=== PATIENT | male | born 1995 | race Caucasian/White ===

== ENCOUNTER 2019-03-13 14:47 | Emergency (ER) | payer OTHER ==
[~2019-03-13] VITALS: Ht 175.3 cm; Wt 72.6 kg
[2019-03-13] MEDS ORDERED: HYDR1TAB94 PO (16:33)
[2019-03-18] MEDS ORDERED: TRAM50 PO (16:58)
== END 2019-03-13 16:54 | disposition home or self-care (01) ==
LOC: ER 14:47
DX: S62.211A Bennett's fracture, right hand, initial encounter for closed fracture (principal); W23.0XXA Caught, crushed, jammed, or pinched between moving objects, initial encounter; Z88.8 Allergy status to other drugs, medicaments and biological substances
CPT/HCPCS: 29125; 73090; 73130; 96372-59; 99283-25; J1885

== ENCOUNTER 2019-03-21 13:48 | Day surgery (SDC) | payer OTHER ==
[~2019-03-21] VITALS: Ht 177.8 cm; Wt 73.8 kg
[~2019-03-21 13:48] MED LIST: HYDR1TAB94 PO; TRAM50 PO
--- NOTE | 2019-03-21 14:34 | NUR ---
PT ADMITTED TO [facility]. REPORT GIVEN TO PUNEET UMANA RN.
--- NOTE | 2019-03-21 14:54 | NUR ---
Ambulatory in Day Surgery History, Chart, Medications and Allergies reviewed before start of procedure.Lungs clear T/O to Auscultation. Patient confirms NPO status and agrees with scheduled surgery. PT BELONGINGS PLACED UNDER BED.
--- NOTE | 2019-03-21 16:58 | NUR ---
RECIEVED PATIENT FROM PACU RECIEVED REPORT PATIENT STARTED ON LIQUIDS AND CRACKERS. FAMILY MEMBER BROUGHT TO BEDSIDE
--- NOTE | 2019-03-21 17:34 | NUR ---
GETTING DRESSED AT THIS TIME.
--- NOTE | 2019-03-21 17:42 | NUR ---
Discharge instructions reviewed with patient. Patient verbalizes understanding. Copy given to patient to take home. Patient States Post-Procedure ride home has been arranged. Discharged via wheelchair to private car for ride home.
--- NOTE | 2019-03-22 13:03 | NUR ---
03/22/19 1303 Nadiya Solano VERIFICATIONS: EDIT CHART.
== END 2019-03-21 22:46 | disposition home or self-care (01) ==
LOC: ORSCMMR 13:48 → ORD 15:30 → ORSCMMR 22:46
PROVIDERS: Orthopaedic Surgery
PROC: 0PSP34Z Reposition Right Metacarpal with Internal Fixation Device, Percutaneous Approach (ICD-10-PCS; principal; 2019-03-21 15:30)
DX: S62.211A Bennett's fracture, right hand, initial encounter for closed fracture (principal); F17.220 Nicotine dependence, chewing tobacco, uncomplicated
CPT/HCPCS: 73140; J0690; J1100; J1885; J2250; J2405; J2704; J3010; J7120

== ENCOUNTER 2024-12-19 11:10 | Emergency (ER) | payer OTHER ==
[~2024-12-19] VITALS: Ht 180.3 cm; Wt 77.1 kg
[2024-12-19 11:21] VITALS: BP 132/94
[2024-12-19] MEDS ORDERED: Tetracaine HCl/Pf 0.5% Opth Soln 4 ml LEFTEYE ONE (11:25)
[2024-12-19] MEDS ORDERED: Fluorescein Sod 1MG Opth Strips LEFTEYE ONE (11:25)
== END 2024-12-19 12:21 | disposition home or self-care (01) ==
LOC: ER 11:10
DX: T63.441A Toxic effect of venom of bees, accidental (unintentional), initial encounter (principal); H57.12 Ocular pain, left eye; Z88.8 Allergy status to other drugs, medicaments and biological substances; Z87.81 Personal history of (healed) traumatic fracture
CPT/HCPCS: 99283; A9270